=== PATIENT | male | born 1975 | race Hispanic/Latino ===

== ENCOUNTER 2021-01-10 09:11 | Inpatient (IN) | payer MEDICAID, OTHER ==
[~2021-01-10] VITALS: Ht 182.9 cm; Wt 127.1 kg
[2021-01-10] MEDS ORDERED: ONDANSETRON 4MG INJ ONE (10:58)
[2021-01-10] MEDS ORDERED: KETOROLAC 30MG VIAL (30MG/ML) ONE (10:58)
[2021-01-10] MEDS ORDERED: KETOROLAC 60 MG VIAL (30MG/ML) IM ONE (11:00)
[2021-01-10] MEDS ORDERED: MORPHINE 4 MG SYG IM ONE (11:00)
[2021-01-10 11:19] LABS: BASOPHILS % (AUTO) 0.4 % (0.0-5.0); EOSINOPHILS % (AUTO) 0.6 % (0.0-8.0); HEMATOCRIT 48.3 % (42-54); LYMPHOCYTES % (AUTO) 12.7 % (21.0-51.0); MEAN CORPUSCULAR HEMOGLOBIN 29.7 pg (27.0-33.0); MEAN CORPUSCULAR HGB CONC 32.9 g/dL (32.0-36.0); MEAN CORPUSCULAR VOLUME 90.1 fL (79-99); MONOCYTES % (AUTO) 6.8 % (3.0-13.0); PLATELET COUNT (AUTO) 286 K/uL (130-400); RED BLOOD CELL COUNT(AUTO) 5.36 MIL/uL (4.50-6.20); WHITE BLOOD COUNT (AUTO) 14.4 K/uL (4.8-10.8)
[2021-01-10 11:29] LABS: POTASSIUM 3.7 mmol/L (3.5-5.1); PROTHROMBIN TIME 10.9 SEC (9.6-11.6)
[2021-01-10 11:30] LABS: PARTIAL THROMBOPLASTIN TIME 29.3 SEC (26.3-35.5)
[2021-01-10 11:33] LABS: ALBUMIN 3.7 g/dL (3.5-5.0); BILIRUBIN,TOTAL 0.8 mg/dL (0.2-1.0); TOTAL PROTEIN, SERUM 7.6 g/dL (6.0-8.3)
[2021-01-10] MEDS ORDERED: ZOLPIDEM TARTRATE 5 MG TAB PO PRN (12:00)
[2021-01-10] MEDS ORDERED: DiphenhydrAMINE HCL 50 MG/ML VIAL IV PRN (12:00)
[2021-01-10] MEDS ORDERED: DIPHENHYDRAMINE HCL 25 MG CAPSULE PO PRN (12:00)
[2021-01-10] MEDS ORDERED: ACETAMINOPHEN 325 MG TAB PO PRN ×2 (12:00)
[2021-01-10] MEDS ORDERED: ONDANSETRON 4MG INJ IV PRN (12:00)
[2021-01-10] MEDS ORDERED: MORPHINE 4 MG SYG ONE (13:10)
[2021-01-10] MEDS: 0.9%NACL 1000ML 1,000 ML IV SCH ×2 (13:15→22:00)
[2021-01-10] MEDS ORDERED: MORPHINE 4 MG SYG IV PRN (13:30)
[2021-01-10] MEDS: HYDRALAZINE 20MG/ML VIAL IV PRN (14:26)
[2021-01-10] MEDS ORDERED: LOSARTAN 25 MG TABLET PO ONE (18:00)
[2021-01-10] MEDS ORDERED: HYDROMORPHONE 0.5 MG SYG (0.5MG/0.5ML) IVP ONE (20:00)
[2021-01-10] MEDS: FAMOTIDINE 20MG VIAL IV SCH (20:13)
[2021-01-11 03:00] VITALS: BP 181/102
[2021-01-11] MEDS: HYDRALAZINE 20MG/ML VIAL IV PRN ×2 (03:33→09:51)
[2021-01-11 04:27] LABS: HEMATOCRIT 43.2 % (42-54); MEAN CORPUSCULAR HEMOGLOBIN 29.4 pg (27.0-33.0); MEAN CORPUSCULAR HGB CONC 32.4 g/dL (32.0-36.0); MEAN CORPUSCULAR VOLUME 90.6 fL (79-99); RED BLOOD CELL COUNT(AUTO) 4.77 MIL/uL (4.50-6.20); RED CELL DISTRIBUTION WIDTH 13.1 % (11.0-15.5); WHITE BLOOD COUNT (AUTO) 11.6 K/uL (4.8-10.8)
[2021-01-11 04:39] LABS: ALBUMIN 3.2 g/dL (3.5-5.0); BILIRUBIN,TOTAL 0.6 mg/dL (0.2-1.0); CREATININE 1.1 mg/dL (0.5-1.5); TOTAL PROTEIN, SERUM 6.6 g/dL (6.0-8.3)
[2021-01-11] MEDS ORDERED: CLONIDINE HCL 0.1 MG TABLET PO PRN (05:30)
[2021-01-11] MEDS ORDERED: CLONIDINE HCL 0.1 MG TABLET ONE (05:32)
[2021-01-11 05:35] LABS: AMPHET/METH SCREEN,URINE NEGATIVE (NEGATIVE); BARBITURATE SCREEN, URINE NEGATIVE (NEGATIVE); BENZODIAZEPINES SCREEN,URINE NEGATIVE (NEGATIVE); CANNABINOID SCREEN,URINE POSITIVE (NEGATIVE); COCAINE SCREEN,URINE POSITIVE (NEGATIVE); OPIATE SCREEN,URINE POSITIVE (NEGATIVE); PHENCYCLIDINE SCREEN,URINE NEGATIVE (NEGATIVE)
[2021-01-11] MEDS: MORPHINE 4 MG SYG IV PRN ×2 (05:40→09:52)
[2021-01-11 08:02] VITALS: BP 168/97
[2021-01-11] MEDS ORDERED: LOSARTAN 25 MG TABLET PO SCH (09:00)
[2021-01-11] MEDS ORDERED: ENOXAPARIN SODIUM 30 MG/0.3 ML SQ SCH (09:00)
[2021-01-11] MEDS: FAMOTIDINE 20MG VIAL IV SCH (09:51)
[2021-01-11] MEDS ORDERED: HYDR-4064 PO (10:16)
[2021-01-11] MEDS ORDERED: LISI1TAB51 PO (10:16)
[2021-01-11] MEDS ORDERED: LISINOPRIL 20 MG TABLET PO SCH (10:30)
[2021-01-11] MEDS ORDERED: HYDROCHLOROTHIAZIDE 25 MG TABLET PO SCH (10:30)
[2021-01-11 10:47] VITALS: BP 156/105
[2021-01-11 11:07] VITALS: BP 164/94
[2021-01-11 11:46] VITALS: BP 152/92
== END 2021-01-11 12:06 | disposition home or self-care (01) | DRG 563 ==
LOC: EDH 09:11 → EDHIP 09:12 → 4BH 01-11 02:24
PROVIDERS: ADMIT Hospitalist; ATTEND Hospitalist
DX: S82.842A Displaced bimalleolar fracture of left lower leg, initial encounter for closed fracture (principal); E66.01 Morbid (severe) obesity due to excess calories; Z68.38 Body mass index [BMI] 38.0-38.9, adult; Z20.822 Contact with and (suspected) exposure to COVID-19; F17.210 Nicotine dependence, cigarettes, uncomplicated; F12.90 Cannabis use, unspecified, uncomplicated; I10 Essential (primary) hypertension; Y93.89 Activity, other specified; Y92.89 Other specified places as the place of occurrence of the external cause; Y99.8 Other external cause status
CPT/HCPCS: 36415; 73610; 73630; 80053; 80305; 85025; 85027; 85610; 85730; 87635; C9803; G0378; J0360; J1170; J1650; J1885; J2270; J2405; J3490; J7030

== ENCOUNTER 2022-06-25 11:45 | Emergency (ER) | payer MEDICAID, OTHER ==
[~2022-06-25] VITALS: Ht 185.4 cm; Wt 145.1 kg
[~2022-06-25 11:45] MED LIST: HYDR-4064 PO; LISI1TAB51 PO
[2022-06-25 11:46] VITALS: BP 141/116
[2022-06-25] MEDS ORDERED: TETANUS/DIPHTHERIA TOXOID [ADULT] 0.5 ML VIAL IM ONE (12:30)
[2022-06-25] MEDS ORDERED: MORPHINE 4 MG SYG IVP ONE (12:30)
[2022-06-25 13:12] LABS: BASOPHILS % (AUTO) 0.5 % (0.0-5.0); EOSINOPHILS % (AUTO) 0.6 % (0.0-8.0); HEMATOCRIT 43.1 % (42-54); LYMPHOCYTES % (AUTO) 9.3 % (21.0-51.0); MEAN CORPUSCULAR HEMOGLOBIN 29.4 pg (27.0-33.0); MEAN CORPUSCULAR HGB CONC 33.4 g/dL (32.0-36.0); MONOCYTES % (AUTO) 4.9 % (3.0-13.0); NEUTROPHILS % (AUTO) 83.8 % (40.0-77.0); PLATELET COUNT (AUTO) 306 K/uL (130-400); RED CELL DISTRIBUTION WIDTH 12.9 % (11.0-15.5); WHITE BLOOD COUNT (AUTO) 14.4 K/uL (4.8-10.8)
[2022-06-25 13:29] LABS: CREATININE 1.1 mg/dL (0.5-1.5); POTASSIUM 4.2 mmol/L (3.5-5.1)
[2022-06-25 13:34] LABS: ALBUMIN 3.5 g/dL (3.5-5.0); TOTAL PROTEIN, SERUM 7.1 g/dL (6.0-8.3)
[2022-06-25] MEDS ORDERED: KETOROLAC 30MG VIAL (30MG/ML) IVP ONE (14:00)
[2022-06-25] MEDS ORDERED: BACITRACIN 1 EACH PACKET TP ONE (14:19)
[2022-06-25 15:16] LABS: APPEARANCE,URINE CLEAR (CLEAR); BILIRUBIN,URINE NEGATIVE (NEGATIVE); COLOR,URINE LIGHT-YELLOW (YELLOW); GLUCOSE, URINE (UA) NEGATIVE (NEGATIVE); KETONES,URINE NEGATIVE (NEGATIVE); LEUKOCYTE ESTERASE ,URINE NEGATIVE Leu/uL (NEGATIVE); NITRATE,URINE NEGATIVE (NEGATIVE); OCCULT BLOOD,URINE NEGATIVE (NEGATIVE); PH,URINE 5.5 (5.0-8.0); PROTEIN,URINE NEGATIVE (NEGATIVE); UROBILINOGEN,URINE 0.2 mg/dL (0.2-1.0)
[2022-06-25 15:19] LABS: MUCUS,URINE RARE LPF (None Seen); RBC,URINE 0-1 /HPF (0-1); SQUAMOUS EPITHELIAL CELL,UR RARE /HPF (0-2); WBC,URINE 0-1 /HPF (0-1)
[2022-06-25] MEDS ORDERED: IBUP-2077 PO (16:05)
== END 2022-06-25 16:50 | disposition home or self-care (01) ==
LOC: EDH 11:45
DX: S86.811A Strain of other muscle(s) and tendon(s) at lower leg level, right leg, initial encounter (principal); S80.11XA Contusion of right lower leg, initial encounter; Z79.899 Other long term (current) drug therapy; V89.2XXA Person injured in unspecified motor-vehicle accident, traffic, initial encounter; Y93.I9 Activity, other involving external motion; Y92.488 Other paved roadways as the place of occurrence of the external cause; Y99.8 Other external cause status
CPT/HCPCS: 99285; 70450; 96374; 71045; 96375; 80053; 85025; 81001; 36415; 90714; 73562; 72125; 90471; J2270; J1885